=== PATIENT | male | born 1965 | race Caucasian/White ===

== ENCOUNTER 2016-10-20 21:01 | Emergency (ER) | payer MEDICAID, OTHER ==
[~2016-10-20] VITALS: Ht 172.7 cm; Wt 84.0 kg
[2016-10-20 22:05] VITALS: Ht 172.7 cm; Wt 84.0 kg
[2016-10-20] MEDS ORDERED: LIDOCAINE 1% (MDV) 20 ML INJ SC ONE (23:30)
[2016-10-21] MEDS ORDERED: BACTDS PO (00:45)
[2016-10-21] MEDS ORDERED: CEPH-443 PO (00:46)
[2016-10-21] MEDS ORDERED: HYDR-906 PO (00:46)
[2016-10-21] MEDS ORDERED: IBUP-1542 PO (00:46)
--- NOTE | 2016-10-21 00:50 | ERD ---
ER Documentation Chief Complaint Date/Time DATE: 10/21/16 TIME: 00:46 Chief Complaint left groin abscess (hard/red/warm), not draining, egg sized per pt x 1 week HPI Patient is a 51-year-old male with a past medical history of hypertension who presents to the emergency department with concerns of an abscess in his groin area. Patient states that that "mass" been getting larger in size from last week. Patient states that the affected area is erythematous and warm to touch. Patient states affected area feels hard. Patient states his current pain level is a 7 out of 10. Patient denies taking any pain medication. Patient denies any fever, chills, nausea, vomiting. Patient does report shaving his groin area. Patient denies previous history of abscess. ROS All systems reviewed and are negative except as per history of present illness. Medications Home Meds Active Scripts Ibuprofen* (Ibuprofen*) 600 Mg Tablet, 600 MG PO Q6, #20 TAB Prov:ELOISA VENTURA-C 10/21/16 Hydrocodone/Acetaminophen ([place] 5-325 Tablet) 1 Each Tablet, 1 TAB PO Q6H Y for PAIN, #10 TAB Prov:ELOISA VENTURA-C 10/21/16 Cephalexin* (Keflex*) 500 Mg Capsule, 500 MG PO TID for 10 Days, CAP Prov:ELOISA VENTURA-C 10/21/16 Sulfamethoxazole-Trimethoprim* (Bactrim* DS) 800-160 Mg Tab, 1 TAB PO BID for 10 Days, TAB Prov:ELOISA VENTURA-C 10/21/16 Allergies Allergies: Coded Allergies: No Known Allergies (Verified Allergy, Mild, 01/10/11) PMhx/Soc History of Surgery: No Anesthesia Reaction: No Hx Neurological Disorder: No Hx Respiratory Disorders: No Hx Cardiac Disorders: Yes (CARDIOMYOPATHY/ HTN.) Hx Psychiatric Problems: No Hx Miscellaneous Medical Probl: No Hx Alcohol Use: No Hx Substance Use: No Hx Tobacco Use: No Smoking Status: Never smoker Physical Exam Vitals Vital Signs Date Time Temp Pulse Resp B/P Pulse Ox O2 Delivery O2 Flow Rate FiO2 10/21/16 00:58 98.0 60 18 155/91 100 Room Air 10/20/16 22:05 98.1 69 20 167/93 99 Physical Exam GENERAL: Well-developed, well-nourished male. Appears in no acute distress. HEAD: Normocephalic, atraumatic. EYES: Pupils are equally reactive bilaterally. EOMs grossly intact. No conjunctival erythema. ENT: Moist mucous membranes. No uvula deviation. No kissing tonsils. NECK: Supple. No lymphadenopathy or thyromegaly. No meningismus. LUNG: Clear to auscultation bilaterally. No rhonchi, wheezing, rales or coarse breath sounds. HEART: Regular rate and rhythm. No murmurs, rubs or gallops. MALE GENITALIA: Male it quality analyst used for examination. Normal, uncircumcised penis without any lesions, masses or deformities. No penile discharge noted. Normal scrotum without any masses, tenderness, swelling or erythema. No inguinal hernias. 6 cm oval shaped abscess noted to L inguinal fold. Pustular head noted. +Tenderness to palpation. Area is swollen and warm to touch. + Fluctuance noted. EXTREMITIES: Equal pulses bilaterally. No peripheral clubbing, cyanosis or edema. No unilateral leg swelling. NEUROLOGIC: Alert and oriented. Moving all four extremities without any difficulty. Normal speech. Steady gait. SKIN: Normal color. Warm and dry. 6 cm oval mass in left groin region. Area is erythematous, swollen, tender to palpation. Results 24 hrs Current Medications Medications (Trade) Dose Ordered Sig/Geovanny Route PRN Reason Start Time Stop Time Status Last Admin Dose Admin Lidocaine (Xylocaine 1% (Mdv) 20 ml) 20 ml ONCE ONCE SC 10/20/16 23:30 10/20/16 23:31 DC Procedures/MDM ED COURSE: The patient was stable throughout ED course. I kept the patient and/or family informed of laboratory and diagnostic imaging results throughout the ED course. INCISION AND DRAINAGE: The patient was verbally consented prior to procedure. Patient was explained the risks, benefits and alternatives to this procedure. Location: Left groin Abscess size: 6 cm, oval shaped Anesthesia: local 1% lidocaine, 5 cc Preparation: The area was prepped in a sterile fashion using betadine x3 cleanses. A sterile field was prepared. Technique: A sterile 11 blade scalpel was used to make a 2 cm linear incision into the abscess. Procedure: A midline abscess incision was made using a sterile scalpel in a linear fashion. Purulent material was expressed with direct pressure. Blunt probing was used to break up loculations. Bleeding was minimal. Packing: half iodoform packing was placed into the wound. The patient tolerated the procedure well with no complications. The wound was dressed in sterile gauze. The patient was neurovascularly intact post- procedure. Post-procedural wound care was discussed with the patient. MEDICAL DECISION MAKING: Patient is a 51 year old male with PMHx of HTN who presents with left sided groin abscess. An incision and drainage was performed to affected area. Purulent material was expressed from abscess. Abscess for packed using 1/2 half iodoform packing. Patient tolerated procedure well. Patient will be started on PO antibiotics. At this time, the patient's presentation is most consistent with left inguinal abscess. Low suspicion for deep space infection, inguinal hernia, or inguinal mass. Patient will need to return to the ED or see his PCP in 2 days for wound recheck and packing removal. PRESCRIPTIONS: Bactrim, Keflex, Ibuprofen, [place] DISCHARGE: At this time, patient is stable for discharge and outpatient management. I have instructed the patient to follow-up with his/her primary care physician or return to ED in 2 days for wound recheck. I have discussed with the patient the possibility of needing to see a specialist for further workup and imaging studies if symptoms persist. I have instructed the patient to promptly return to the ER for any new or worsening symptoms including increased pain, fever, nausea, vomiting, increasing warmth, increasing swelling, increasing erythema or LOC. The patient and/or family expressed understanding of and agreement with this plan. All questions were answered. Home care instructions were provided. Patients blood pressure was elevated (>120/80) but appears stable without evidence of hypertensive emergency, hypertensive urgency or end-organ failure. I had discussion with the patient about the risks of hypertension. I have advised the patient to follow up with his/her primary care physician for outpatient monitoring and treatment for hypertension in 2-3 days. I have instructed the patient to return to the ER for any new or worsening symptoms including chest pain, shortness of breath, headache, blurred vision, confusion, nausea, vomiting or LOC. Departure Diagnosis: Primary Impression: Abscess Additional Impression: Encounter for incision and drainage procedure Condition: Stable Patient Instructions: Abscess, Incision And Drainage Referrals: [facility] Additional Instructions: Patient will need to return to the emergency department or see PCP in 2 days for wound recheck. Take prescriptions as prescribed. Return sooner for any new or worsening symptoms including pain, swelling, warmth, redness, fever, chills. Call your primary care doctor TOMORROW for an appointment during the next 1-2 days.See the doctor sooner or return here if your condition worsens before your appointment time. ELOISA VENTURA PA-C Oct 21, 2016 00:50
[2016-10-21 00:58] VITALS: BP 155/91; PULSE 60; RESP 18; TEMP 98
== END 2016-10-21 00:58 | disposition home or self-care (01) ==
LOC: FTE 21:01
DX: L02.214 Cutaneous abscess of groin (principal); I10 Essential (primary) hypertension
CPT/HCPCS: 10061; Z7502; Z7610

== ENCOUNTER 2016-10-23 01:09 | Emergency (ER) | payer OTHER ==
[~2016-10-23] VITALS: Ht 170.2 cm; Wt 83.5 kg
[~2016-10-23 01:09] MED LIST: BACTDS PO; CEPH-443 PO; HYDR-906 PO; IBUP-1542 PO
[2016-10-23 01:26] VITALS: Ht 170.2 cm; Wt 83.5 kg
--- NOTE | 2016-10-23 02:43 | ERD ---
ER Documentation Chief Complaint Date/Time DATE: 10/23/16 TIME: 02:41 Chief Complaint wound check HPI This is a 51-year-old male presents to the emergency room for evaluation of a abscess. The patient did have abscess drained 2 days ago on the left side of the scrotum. The patient had abscess packed and is on Bactrim and Keflex and came to the emergency room today for routine reevaluation. He denies any drainage from the site, denies any pain in the area or fevers. ROS All systems reviewed and are negative except as per history of present illness. Medications Home Meds Active Scripts Ibuprofen* (Ibuprofen*) 600 Mg Tablet, 600 MG PO Q6, #20 TAB Prov:ELOISA VENTURA PA-C 10/21/16 Hydrocodone/Acetaminophen ([place] 5-325 Tablet) 1 Each Tablet, 1 TAB PO Q6H Y for PAIN, #10 TAB Prov:ELOISA VENTURA PA-C 10/21/16 Cephalexin* (Keflex*) 500 Mg Capsule, 500 MG PO TID for 10 Days, CAP Prov:ELOISA VENTURA-C 10/21/16 Sulfamethoxazole-Trimethoprim* (Bactrim* DS) 800-160 Mg Tab, 1 TAB PO BID for 10 Days, TAB Prov:ELOISA VENTURA PA-C 10/21/16 Allergies Allergies: Coded Allergies: No Known Allergies (Verified Allergy, Mild, 01/10/11) PMhx/Soc History of Surgery: No Anesthesia Reaction: No Hx Neurological Disorder: No Hx Respiratory Disorders: No Hx Cardiac Disorders: Yes (CARDIOMYOPATHY/ HTN.) Hx Psychiatric Problems: No Hx Miscellaneous Medical Probl: No Hx Alcohol Use: No Hx Substance Use: No Hx Tobacco Use: No Physical Exam Vitals Vital Signs Date Time Temp Pulse Resp B/P Pulse Ox O2 Delivery O2 Flow Rate FiO2 10/23/16 01:26 8.2 69 20 151/68 100 Physical Exam Const: No acute distress Head: Atraumatic Eyes: Normal Conjunctiva ENT: Normal External Ears, Nose and Mouth. Neck: Full range of motion..~ No meningismus. Resp: Clear to auscultation bilaterally Cardio: Regular rate and rhythm, no murmurs Abd: Soft, non tender, non distended. Normal bowel sounds Skin: Small incision noted on the left portion of the lateral aspect of the scrotum and medial aspect of the thigh with packing. No surrounding area of cellulitis or purulent discharge. No petechiae or rashes Back: No midline or flank tenderness Ext: No cyanosis, or edema Neur: Awake and alert Psych: Normal Mood and Affect Procedures/MDM This 51-year-old male presents to the ER for evaluation of the abscess incision and drainage. The patient had an incision and drainage 2 days ago with packing. I removed the packing. The patient has no surrounding area of cellulitis. I advised him to continue his medication and follow-up with his primary care and he verbalized understanding. Departure Diagnosis: Primary Impression: Encounter for wound re-check Condition: Stable RISHI MADRIGAL DO Oct 23, 2016 02:42
== END 2016-10-23 02:50 | disposition home or self-care (01) ==
LOC: E/R 01:09
DX: Z48.01 Encounter for change or removal of surgical wound dressing (principal); I10 Essential (primary) hypertension
CPT/HCPCS: 99281